=== PATIENT | female | born 1960 | race Caucasian/White ===

== ENCOUNTER → 2017-04-24 | Outpatient (CLI) | payer BC ==
[2017-04-24 11:23] LABS: ABSOLUTE BASOPHILS # (AUTO) 0.1 10^3/uL (0.0-0.2); ABSOLUTE EOSINOPHILS # (AUTO) 0.2 10^3/uL (0.0-0.6); ABSOLUTE LYMPHOCYTES (AUTO) 1.6 10^3/uL (0.5-4.7); ABSOLUTE MONOCYTES (AUTO) 0.6 10^3/uL (0.1-1.4); ABSOLUTE NEUT (AUTO) 4.2 10^3/uL (1.7-8.2); BASOPHILS % (AUTO) 0.8 % (0-2); EOSINOPHILS % (AUTO) 2.7 % (0-6); HEMATOCRIT 45.1 % (36.0-47.0); HEMOGLOBIN 14.8 g/dL (12.0-15.5); HGB HCT DIFFERENCE -0.7; LYMPHOCYTES % (AUTO) 24.5 % (13-45); MEAN CORPUSCULAR HGB CONC 32.9 g/dL (32.0-36.0); MEAN CORPUSCULAR VOLUME 91 fl (80-97); MONOCYTES % (AUTO) 9.1 % (3-13); RED BLOOD COUNT 4.95 10^6/uL (3.72-5.28); RED CELL DISTRIBUTION WIDTH 12.7 % (11.5-14.0); SEGMENTED NEUTROPHILS % (AUTO) 62.9 % (42-78); WHITE BLOOD COUNT 6.7 10^3/uL (4.0-10.5)
[2017-04-24 11:48] LABS: ALANINE AMINOTRANSFERASE 49 U/L (9-52); ALBUMIN 4.4 g/dL (3.5-5.0); ALKALINE PHOSPHATASE 80 U/L (38-126); ANION GAP 14 (5-19); ASPARTATE AMINO TRANSFERASE 36 U/L (14-36); BILIRUBIN,DIRECT 0.4 mg/dL (0.0-0.4); BILIRUBIN,TOTAL 0.9 mg/dL (0.2-1.3); BLOOD UREA NITROGEN 25 mg/dL (7-20); CALCIUM 9.8 mg/dL (8.4-10.2); CARBON DIOXIDE 25 mmol/L (22-30); CHLORIDE 101 mmol/L (98-107); CREATININE RESULT 1.04 mg/dL (0.52-1.25); GLUCOSE 119 mg/dL (75-110); POTASSIUM 4.6 mmol/L (3.6-5.0); SODIUM 139.5 mmol/L (137-145); TOTAL PROTEIN 7.7 g/dL (6.3-8.2)
== END ==
LOC: OD 10:29
PROVIDERS: ATTEND Orthopaedic Surgery
DX: Z11.2 Encounter for screening for other bacterial diseases (principal); I10 Essential (primary) hypertension
CPT/HCPCS: 36415; 80053; 85025; 87070

== ENCOUNTER 2018-07-31 19:15 | Emergency (ER) | payer BC ==
[2018-07-31 19:45] VITALS: BP 154/88
[2018-07-31] MEDS ORDERED: MECLIZINE HCL 25 MG TABLET PO ONE (21:52)
--- NOTE | 2018-07-31 21:54 | ER Document Report ---
ED Medical Screen (RME) - General Chief Complaint: Headache Stated Complaint: DIZZINESS Time Seen by Provider: 07/31/18 21:52 Mode of Arrival: Ambulatory Information source: Patient Notes: Patient is a 58-year-old female who presents with chief complaint of dizziness, nausea and vomiting and headache. Patient reports that the symptoms started at approximately 3 AM. Patient reports she had a history of vertigo a few years ago, states this feels however she feels it is more severe this time. Patient reports she has vomited so many times she lost track today. Patient denies any diarrhea or fevers. Exam: Patient ambulates with unsteady gait. Normal sensation to all extremities, no neurological deficits noted. I have greeted and performed a rapid initial assessment of this patient. A comprehensive ED assessment and evaluation of the patient, analysis of test results and completion of the medical decision making process will be conducted by additional ED providers. Dictation of this chart was performed using voice recognition software; therefore, there may be some unintended grammatical errors. TRAVEL OUTSIDE OF THE [place] IN LAST 30 DAYS: No - Related Data Allergies/Adverse Reactions: Penicillins Allergy (Mild, Verified 08/18/11 10:23) Past Medical History - Past Medical History Cardiac Medical History: Denies: Hx Coronary Artery Disease, Hx Heart Attack, Hx Hypertension Pulmonary Medical History: Reports: Hx Asthma - SEASONAL ASTHMA Denies: Hx Bronchitis, Hx COPD, Hx Pneumonia Neurological Medical History: Denies: Hx Cerebrovascular Accident, Hx Seizures GI Medical History: Musculoskeltal Medical History: Denies Hx Arthritis Infectious Medical History: Past Surgical History: Denies: Hx Pacemaker - Immunizations Hx Diphtheria, Pertussis, Tetanus Vaccination: Yes Physical Exam - Vital signs Vitals: Temp Pulse Resp BP Pulse Ox 98.1 F 61 18 154/88 H 97 07/31/18 19:44 07/31/18 19:44 07/31/18 19:44 07/31/18 19:44 07/31/18 19:44 Course - Vital Signs Vital signs: Temp Pulse Resp BP Pulse Ox 98.1 F 61 18 154/88 H 97 07/31/18 19:44 07/31/18 19:44 07/31/18 19:44 07/31/18 19:44 07/31/18 19:44 Doctor's Discharge - Discharge Referrals: JHON WASSERMAN MD [Primary Care Provider] - Follow up as needed
[2018-07-31 22:10] LABS: ABSOLUTE EOSINOPHILS # (AUTO) 0.1 10^3/uL (0.0-0.6); ABSOLUTE LYMPHOCYTES (AUTO) 1.8 10^3/uL (0.5-4.7); ABSOLUTE MONOCYTES (AUTO) 0.5 10^3/uL (0.1-1.4); ABSOLUTE NEUT (AUTO) 5.8 10^3/uL (1.7-8.2); BASOPHILS % (AUTO) 0.6 % (0-2); EOSINOPHILS % (AUTO) 1.4 % (0-6); HEMATOCRIT 44.9 % (36.0-47.0); HEMOGLOBIN 15.3 g/dL (12.0-15.5); LYMPHOCYTES % (AUTO) 22.3 % (13-45); MEAN CORPUSCULAR HEMOGLOBIN 30.9 pg (27.0-33.4); MEAN CORPUSCULAR HGB CONC 34.1 g/dL (32.0-36.0); MEAN CORPUSCULAR VOLUME 91 fl (80-97); MONOCYTES % (AUTO) 5.8 % (3-13); PLATELET COUNT 270 10^3/uL (150-450); RED BLOOD COUNT 4.96 10^6/uL (3.72-5.28); RED CELL DISTRIBUTION WIDTH 12.7 % (11.5-14.0); SEGMENTED NEUTROPHILS % (AUTO) 69.9 % (42-78); TOTAL CELLS COUNTED % (AUTO) 100 %; WHITE BLOOD COUNT 8.3 10^3/uL (4.0-10.5)
[2018-07-31 22:32] LABS: ALANINE AMINOTRANSFERASE 18 U/L (9-52); ALBUMIN 4.4 g/dL (3.5-5.0); ALKALINE PHOSPHATASE 79 U/L (38-126); ANION GAP 8 (5-19); ASPARTATE AMINO TRANSFERASE 48 U/L (14-36); BILIRUBIN,DIRECT 0.6 mg/dL (0.0-0.4); BILIRUBIN,TOTAL 0.8 mg/dL (0.2-1.3); BLOOD UREA NITROGEN 17 mg/dL (7-20); CALCIUM 9.6 mg/dL (8.4-10.2); CARBON DIOXIDE 31 mmol/L (22-30); CHLORIDE 101 mmol/L (98-107); GLUCOSE 124 mg/dL (75-110); POTASSIUM 4.1 mmol/L (3.6-5.0); SODIUM 140.3 mmol/L (137-145)
[2018-08-01] MEDS ORDERED: MECLIZINE HCL 25 MG TABLET PO ONE (00:05)
--- NOTE | 2018-08-01 00:05 | ER Document Report ---
ED General - General Chief Complaint: Headache Stated Complaint: DIZZINESS Time Seen by Provider: 07/31/18 21:52 Mode of Arrival: Ambulatory Notes: Patient is a 58-year-old female who presents with chief complaint of dizziness, nausea and vomiting and headache. Patient reports that the symptoms started at approximately 3 AM. Patient reports she had a history of vertigo a few years ago, states this feels however she feels it is more severe this time. Patient reports she has vomited so many times she lost track today. Patient denies any diarrhea or fevers. TRAVEL OUTSIDE OF THE [place] IN LAST 30 DAYS: No - Related Data Allergies/Adverse Reactions: Penicillins Allergy (Mild, Verified 08/18/11 10:23) Past Medical History - General Information source: Patient - Social History Smoking Status: Never Smoker Frequency of alcohol use: None Drug Abuse: None Family History: Reviewed & Not Pertinent Patient has suicidal ideation: No Patient has homicidal ideation: No - Past Medical History Cardiac Medical History: Denies: Hx Coronary Artery Disease, Hx Heart Attack, Hx Hypertension Pulmonary Medical History: Reports: Hx Asthma - SEASONAL ASTHMA Denies: Hx Bronchitis, Hx COPD, Hx Pneumonia Neurological Medical History: Denies: Hx Cerebrovascular Accident, Hx Seizures Renal/ Medical History: Denies: Hx Peritoneal Dialysis GI Medical History: Musculoskeletal Medical History: Denies Hx Arthritis Infectious Medical History: Surgical Hx: Negative Past Surgical History: Denies: Hx Pacemaker - Immunizations Hx Diphtheria, Pertussis, Tetanus Vaccination: Yes Hx Pneumococcal Vaccination: 08/09/10 Review of Systems - Review of Systems Constitutional: Other - Dizziness Gastrointestinal: Nausea, Vomiting Physical Exam - Vital signs Vitals: Temp Pulse Resp BP Pulse Ox 98.1 F 61 18 154/88 H 97 07/31/18 19:44 07/31/18 19:44 07/31/18 19:44 07/31/18 19:44 07/31/18 19:44 - Notes Notes: PHYSICAL EXAMINATION: GENERAL: Well-appearing, well-nourished and in no acute distress. HEAD: Atraumatic, normocephalic. EYES: Pupils equal round and reactive to light, extraocular movements intact, conjunctiva are normal. ENT: Nares patent, oropharynx clear without exudates. Moist mucous membranes. NECK: Normal range of motion, supple without lymphadenopathy LUNGS: Breath sounds clear to auscultation bilaterally and equal. No wheezes rales or rhonchi. HEART: Regular rate and rhythm without murmurs ABDOMEN: Soft, nontender, nondistended abdomen. No guarding, no rebound. No masses appreciated. Female : deferred Musculoskeletal: Normal range of motion, no pitting or edema. No cyanosis. NEUROLOGICAL: Cranial nerves grossly intact. Normal speech, normal gait. Normal sensory, motor exams PSYCH: Normal mood, normal affect. SKIN: Warm, Dry, normal turgor, no rashes or lesions noted. Course - Re-evaluation Re-evalutation: CBC and CMP are unremarkable. Patient was given meclizine in triage. Patient reports that she is feeling much improved and is requesting to be discharged home. Patient will be provided with a prescription for meclizine and diagnosed with likely vertigo. Patient understands ED return precautions and agrees to follow-up with her primary care for any additional concerns. - Vital Signs Vital signs: Temp Pulse Resp BP Pulse Ox 98.1 F 61 18 154/88 H 97 07/31/18 19:44 07/31/18 19:44 07/31/18 19:44 07/31/18 19:44 07/31/18 19:44 - Laboratory Result Diagrams: 07/31/18 21:37 07/31/18 21:37 Laboratory results interpreted by me: 07/31/18 21:37 Carbon Dioxide 31 H Est GFR (Non-Af Amer) 56 L Glucose 124 H Direct Bilirubin 0.6 H AST 48 H Discharge - Discharge Clinical Impression: Vertigo Condition: Stable Disposition: HOME, SELF-CARE Additional Instructions: Vertigo You have experienced an episode of vertigo -- a whirling dizziness which may be accompanied by nausea and vomiting or staggering. Vertigo is often caused by an irritation of the inner ear, in which case it is called labyrinthitis. It can also be a symptom of a degenerating inner ear, nerve damage, or brain injury. Your physician has evaluated you to determine whether any further testing is necessary. Vertigo is often treated with dramamine or meclizine. These medications are helpful, but stronger medication may be needed if you are vomiting. Rest in bed. You should not drive or operate machinery until completely better. It may take one to three weeks for recovery. If there are new symptoms, such as decreased hearing or vision, severe headache, weakness or faintness, or confusion, call the physician. Please take the medication as directed, follow-up with your primary care provider in the next 2-3 days for follow-up, return to the emergency department if you develop worsening symptoms. Prescriptions: Meclizine HCl [Antivert 25 mg Tablet] 25 mg PO TID PRN #21 tablet PRN Reason: Referrals: JHON WASSERMAN MD [ASSOCIATE] - Follow up as needed
== END 2018-08-01 07:09 | disposition home or self-care (01) ==
LOC: ER 19:15
DX: R42 Dizziness and giddiness (principal)
CPT/HCPCS: 36415; 80053; 85025; 99284

== ENCOUNTER 2020-09-07 06:34 | Day surgery (SDC) | payer BC ==
[2020-09-04 10:16] LABS: APPEARANCE,URINE SLIGHTLY-CLOUDY; BILIRUBIN,URINE NEGATIVE (NEGATIVE); COLOR,URINE YELLOW; GLUCOSE, URINE NEGATIVE (NEGATIVE); KETONES,URINE NEGATIVE (NEGATIVE); LEUKOCYTE ESTERASE,URINE NEGATIVE (NEGATIVE); NITRITE,URINE NEGATIVE (NEGATIVE); PROTEIN,URINE NEGATIVE (NEGATIVE); URINE SPECIFIC GRAVITY 1.019; UROBILINOGEN,URINE NEGATIVE mg/dL (<2.0)
[2020-09-04 10:32] LABS: HEMATOCRIT 40.6 % (36.0-47.0); MEAN CORPUSCULAR HGB CONC 34.6 g/dL (32.0-36.0); MEAN CORPUSCULAR VOLUME 90 fl (80-97); PLATELET COUNT 240 10^3/uL (150-450); RED BLOOD COUNT 4.52 10^6/uL (3.72-5.28); RED CELL DISTRIBUTION WIDTH 12.9 % (11.5-14.0); WHITE BLOOD COUNT 5.8 10^3/uL (4.0-10.5)
[2020-09-04 10:54] LABS: ANION GAP 10 (5-19); BLOOD UREA NITROGEN 22 mg/dL (7-20); CALCIUM 9.9 mg/dL (8.4-10.2); CARBON DIOXIDE 28 mmol/L (22-30); CHLORIDE 102 mmol/L (98-107); GLUCOSE 103 mg/dL (75-110); POTASSIUM 4.3 mmol/L (3.6-5.0)
[~2020-09-07 06:34] MED LIST: CLINDAMYCIN 600 MG/D5W RTU 600 MG/50 ML RTUPB IV ONE; CLINDAMYCIN 600 MG/D5W RTU 600 MG/50 ML RTUPB IV PRN; FENTANYL CITRATE INJ/PF 100 MCG/2 ML AMPUL ONE; LACTATED RINGERS 1000 ML IV PRN; LIDOCAINE 0.5% INJ-PF (5 MG/ML) 50 ML SDV SUBCUT PRN; MIDAZOLAM 2 MG/2 ML INJ ONE
[2020-09-07] MEDS ORDERED: PROPOFOL INJ 200 MG/20 ML VIAL IV ONE (06:52)
[2020-09-07] MEDS ORDERED: MEPERIDINE HCL/PF INJ 25 MG/1 ML DISP.SYRIN IV PRN (07:38)
[2020-09-07] MEDS ORDERED: DIPHENHYDRAMINE HCL 50 MG/ML VIAL IV PRN (07:38)
[2020-09-07] MEDS ORDERED: PROMETHAZINE HCL INJ 25 MG/1 ML VIAL IV PRN ×2 (07:38)
[2020-09-07] MEDS ORDERED: FENTANYL CITRATE INJ/PF 100 MCG/2 ML AMPUL IV PRN ×3 (07:38)
[2020-09-07] MEDS ORDERED: LIDOCAINE 1%/EPINEPHRINE INJ 20 ML VIAL ONE (08:04)
[2020-09-07] MEDS ORDERED: KETOROLAC TROMETHAMINE INJ/PF 30 MG/1 ML SDV ONE (09:08)
--- NOTE | 2020-09-07 09:48 | Operative Report ---
Operative Report DATE OF SURGERY: 09/07/20 PREOPERATIVE DIAGNOSIS: AG US Pap, status post endometrial ablation here for co ld knife conization POSTOPERATIVE DIAGNOSIS: Same OPERATION: Cold knife conization, ECC, attempted endometrial biopsy SURGEON: WESLY GUPTA ANESTHESIA: LMAC TISSUE REMOVED OR ALTERED: Cervical cone, ECC, endometrial sample COMPLICATIONS: None ESTIMATED BLOOD LOSS: 25 mL INTRAOPERATIVE FINDINGS: Normal cervix PROCEDURE: Preoperatively the patient is aware of the risk of bleeding infection anesthesia and damage to other organs and tissues. Brought to the OR for attempted definitive diagnosis and treatment as well as a endometrial sampling. Outpatient measures to identify endometrium are unsuccessful due to previous NovaSure ablation After surgical timeout performed EUA was performed bladder was left undrained cold knife conization ensued and the specimen was marked at the 12 o'clock position. Endocervical 6 sampling was performed and attempted location of this endocervical os and endometrium was was difficult and every effort was made to identify the endometrial cavity which clearly was scarred small amount of tissue was obtained and these efforts have been sent to pathology. Cauterization of the bed of the cone was performed with good hemostasis at this point and a pledget of Surgicel was placed. Patient taken recovery room stable condition
[2020-09-07 11:37] VITALS: BP 119/70
== END 2020-09-07 10:40 | disposition home or self-care (01) ==
LOC: OROUT 06:34
PROVIDERS: ATTEND Specialist
DX: N87.0 Mild cervical dysplasia (principal); N88.8 Other specified noninflammatory disorders of cervix uteri; Z03.818 Encounter for observation for suspected exposure to other biological agents ruled out; E66.9 Obesity, unspecified; E07.9 Disorder of thyroid, unspecified; Z98.890 Other specified postprocedural states; K21.9 Gastro-esophageal reflux disease without esophagitis; Z79.899 Other long term (current) drug therapy
CPT/HCPCS: 86900; 86901; 36415 ×2; 86850; 84132; 85027; 80048; 81001; 88305 ×2; 88307 ×2; 57520; U0003; J2250; J3010; J3490; J1885; J2704; C9803; 87635; 940